=== PATIENT | female | born 1930 | race Caucasian/White ===

== ENCOUNTER 2018-08-22 11:19 | Inpatient (IN) | payer MEDICARE ==
[~2018-08-22] VITALS: Ht 149.9 cm; Wt 54.9 kg
[~2018-08-22 11:19] MED LIST: ACET325T53 PO; AMLO5TAB7 PO; ASCO500T8 PO; CALC-261 PO; DOCU-141 PO; ENOX30DI5 SQ; ESTR0.3T3 PO; FENO145T35 PO; HYDR-3974 PO; HYDR-4354 PO; LEVO750T21 PO; LORA0.5T PO; MAG30ORA PO; OMEP40CA37 PO; PHEN-705 PO; SENN-18 PO; SERT50TA12 PO; SIMV20TA6 PO; TAMS0.4C34 PO; TIMO5SOL9 EACHEYE; ZOLP5TAB2 PO
[2018-08-22 12:10] LABS: BASOPHILS # (AUTO) 0.1 /CMM (0.0-0.2); BASOPHILS % (AUTO) 0.6 % (0.0-2.0); EOSINOPHILS % (AUTO) 1.3 % (0.0-6.0); HEMATOCRIT 37 % (33-45); HEMOGLOBIN 12.3 g/dL (11.5-14.8); LYMPHOCYTES # (AUTO) 1.6 /CMM (0.8-4.8); LYMPHOCYTES % (AUTO) 11.9 % (20.0-44.0); MEAN CORPUSCULAR HGB CONC 33 g/dl (31.0-36.0); MEAN CORPUSCULAR VOLUME 96 fL (82-100); MONOCYTES # (AUTO) 1.1 /CMM (0.1-1.30); NEUTROPHILS # (AUTO) 10.5 /CMM (1.8-8.9); NEUTROPHILS % (AUTO) 78.2 % (43.0-81.0); PLATELET COUNT (AUTO) 241 /CMM (150-450); RED BLOOD CELL COUNT(AUTO) 3.85 MIL/uL (4.0-5.2); WHITE BLOOD COUNT (AUTO) 13.4 K/uL (4.3-11.0)
--- NOTE | 2018-08-22 12:11 | NUR ---
BIB FAMILY SENT BY DR VERDUGO C/O SACRUM AND R WRIST FX. ALERT AND ORIENTED X 4. ON ROOM AIR, BREATHING EVENLY AND UNLABROED. VITAL SIGNS WNL. AWAITING FOR MD FOR EVAL. WILL CONTINUE TO MONITOR ACCORDINGLY.
[2018-08-22 12:18] LABS: CALCIUM, SERUM 9.2 mg/dL (8.5-10.1); CARBON DIOXIDE 22 mmol/L (21-32); CHLORIDE 100 mmol/L (98-107); CREATININE 2.8 mg/dL (0.6-1.3); GLUCOSE 123 mg/dL (74-106); POTASSIUM 4.6 mmol/L (3.5-5.1); SODIUM SERUM 137 mmol/L (136-145); UREA NITROGEN, BLOOD 56 mg/dL (7-18)
--- NOTE | 2018-08-22 12:21 | NUR ---
CALLED [facility] FOR THIS PATIENT
--- NOTE | 2018-08-22 12:52 | NUR ---
CALLED NURSING SUP REQUESTED MED SURG BED FOR THIS PATIENT
[2018-08-22] MEDS ORDERED: IV NS 0.9% 1,000 ML BAG IV ONE (13:00)
[2018-08-22] MEDS ORDERED: IV NS 0.9% 500 ML BAG IV ONE (13:00)
[2018-08-22] MEDS ORDERED: ASPIRIN EC 81 MG TABLET.DR PO ONE (14:10)
[2018-08-22] MEDS ORDERED: CHOL100040 PO (14:13)
[2018-08-22] MEDS ORDERED: FENO200C PO (14:13)
[2018-08-22] MEDS: ASPIRIN EC 81 MG TABLET.DR PO SCH (14:15)
--- NOTE | 2018-08-22 14:20 | NUR ---
REPORT GIVEN TO TONO TAMAYO FOR PATRICIA. PT GOING TO ROOM 206 M.
--- NOTE | 2018-08-22 15:41 | NUR ---
TELE 120-1
--- NOTE | 2018-08-22 15:50 | NUR ---
REPORT GIVEN TO ANANT TAMAYO FOR PATRICIA. GOING TO ROOM 120-1 T.
[2018-08-22] MEDS ORDERED: ONDANSETRON HCL/PF 4 MG/2 ML VIAL IVP PRN (16:30)
[2018-08-22] MEDS ORDERED: HYDROCODONE/APAP 5/325MG 1 EACH TABLET PO PRN (16:30)
[2018-08-22] MEDS ORDERED: LORAZEPAM 0.5 MG TABLET PO PRN (16:30)
[2018-08-22] MEDS ORDERED: Z GUARD REMEDY 2 OZ OINT TP PRN (16:30)
--- NOTE | 2018-08-22 16:30 | NUR ---
PATIENT WHEELED TO RICARDO GOING TO ROOM 120-1 VIA ACLS PROTOCOL.
[2018-08-22 17:00] VITALS: BP 123/61
[2018-08-22] MEDS: TIMOLOL -XE 0.5% 5 ML BOTTLE EACHEYE SCH (17:00)
--- NOTE | 2018-08-22 17:00 | NUR ---
RN ADMITTING NOTES RECEIVED PT FROM ER VIA JAMES ACCOMPANIED BY RN, LIZETTE. NO C/O PAIN AT THIS TIME. SR ON TELEMONITOR. ORIENTED TO ROOM AND USE OF CALL LIGHT. ON 2L O2 VIA NC, TOLERATING WELL, NO SOB NOTED. SR ON TELEMONITOR. WITH INTACT AND IN PLACED FC DRAINING YELLOW COLOR URINE. WITH INTACT AND PATENT LAC G20 SL. PHYSICAL ASSESSMENT DONE AND VS TAKEN. SAFETY MEASURES IN PLACED. CALL LIGHT WITHIN EASY REACH. WILL CONT TO MONITOR
[2018-08-22] MEDS: IV NS 0.9% 1,000 ML IV PRN (17:16)
--- NOTE | 2018-08-22 17:28 | NUR ---
RN NOTES RECEIVED CALL FROM PHARMACY, SPOKE WITH RAYMON, PER PHARMACIST TIMOLOL EYEDROPS WILL BE AVAILABLE TOMORROW AM
--- NOTE | 2018-08-22 18:58 | NUR ---
RN NOTES PT IN STABLE CONDITION. NO ACUTE CHANGES NOTED THROUGHOUT SHIFT. SAFETY MEASURES OBSERVED AT ALL TIMES. WILL ENDORSED TO PM SHIFT RN FOR PATRICIA
[2018-08-22 20:00] VITALS: BP 103/54
[2018-08-22] MEDS ORDERED: LACTULOSE 10 G/15 ML UDC (PYXIS) PO PRN (20:00)
[2018-08-22] MEDS ORDERED: MAGNESIUM CITRATE 296 ML BOTTLE PO ONE (20:00)
--- NOTE | 2018-08-22 20:00 | NUR ---
TELE/RN NOTES: RECEIVED PT. IN BED W/ HOB ELEVATED. A/O X 4. RESPIRATIONS EVEN AND UNLABORED. DENIES ANY C/O CHEST PAIN OR SOB NOTED. ON TELE MONITOR W/ SR. W/ SON AND DAUGHTER IN LAW AT BEDSIDE. HAS LAC G 20 PATENT AND INTACT W/ IVF INTACT AND PATENT. W/ F/C PATENT AND INTACT DRAINING VIA GRAVITY. BEDS LOCKED AND IN LOW POSITION. CALL LIGHT W/ REACH. WILL CONTINUE TO MONITOR.
[2018-08-22] MEDS: SENNOSIDES 8.6 MG TABLET PO SCH (21:03)
[2018-08-22] MEDS: SIMVASTATIN 20 MG TABLET PO SCH (21:03)
[2018-08-22] MEDS: HYDROCODONE/APAP 5/325MG 1 EACH TABLET PO PRN (21:12)
[2018-08-23] VITALS: BP 95/56
[2018-08-23] MEDS: HYDROCODONE/APAP 5/325MG 1 EACH TABLET PO PRN ×3 (01:13→12:20)
[2018-08-23 04:00] VITALS: BP 100/60
--- NOTE | 2018-08-23 07:23 | NUR ---
TELE/RN NOTES: REPORT GIVEN TO NEXT SHIFT NURSE FOR PATRICIA.
--- NOTE | 2018-08-23 07:30 | NUR ---
TELE/RN OPENING NOTES: RECEIVED REPORT FROM PM NURSE .PT IN BED W/ HOB ELEVATED. A/O X 4. RESPIRATIONS EVEN AND UNLABORED. DENIES ANY C/O CHEST PAIN OR SOB NOTED. ON TELE MONITOR W/ SR HR 67. HAS LAC G 20 PATENT AND INTACT W/ IVF INTACT AND PATENT. W/ F/C PATENT AND INTACT DRAINING VIA GRAVITY. BEDS LOCKED AND IN LOW POSITION. CALL LIGHT W/ REACH. SRX3.WILL CONTINUE TO MONITOR.
[2018-08-23 07:37] LABS: BASOPHILS % (AUTO) 0.4 % (0.0-2.0); HEMATOCRIT 31 % (33-45); HEMOGLOBIN 10.7 g/dL (11.5-14.8); LYMPHOCYTES # (AUTO) 2.2 /CMM (0.8-4.8); LYMPHOCYTES % (AUTO) 24.5 % (20.0-44.0); MEAN CORPUSCULAR HGB CONC 34 g/dl (31.0-36.0); MEAN CORPUSCULAR VOLUME 97 fL (82-100); MONOCYTES # (AUTO) 1.1 /CMM (0.1-1.30); MONOCYTES % (AUTO) 11.7 % (2.0-12.0); NEUTROPHILS # (AUTO) 5.5 /CMM (1.8-8.9); NEUTROPHILS % (AUTO) 60.4 % (43.0-81.0); PLATELET COUNT (AUTO) 206 /CMM (150-450); RED BLOOD CELL COUNT(AUTO) 3.24 MIL/uL (4.0-5.2); WHITE BLOOD COUNT (AUTO) 9.1 K/uL (4.3-11.0)
[2018-08-23 07:47] LABS: CHOLESTEROL 129 mg/dL (<200); HDL CHOLESTEROL 17 mg/dL (40-60); LDL 76 mg/dL (0-99); THYROID STIMULATING HORMONE 1.291 uIU/mL (0.358-3.74); TRIGLYCERIDES 189 mg/dL (30-150)
[2018-08-23 08:00] VITALS: BP 100/65
[2018-08-23 08:02] LABS: ALANINE AMINOTRANSFERASE 41 U/L (12-78); ALBUMIN 2.8 g/dL (3.4-5.0); ALKALINE PHOSPHATASE 52 U/L (46-116); ASPARTATE AMINOTRANSFERASE 50 U/L (15-37); BILIRUBIN,TOTAL 0.3 mg/dL (0.2-1.0); CALCIUM, SERUM 8.4 mg/dL (8.5-10.1); CARBON DIOXIDE 25 mmol/L (21-32); CHLORIDE 108 mmol/L (98-107); CREATININE 1.7 mg/dL (0.6-1.3); GLUCOSE 105 mg/dL (74-106); MAGNESIUM 2.5 mg/dL (1.8-2.4); PHOSPHORUS 3.6 mg/dL (2.5-4.9); POTASSIUM 4.7 mmol/L (3.5-5.1); SODIUM SERUM 143 mmol/L (136-145); TOTAL PROTEIN, SERUM 6.3 g/dL (6.4-8.2); UREA NITROGEN, BLOOD 48 mg/dL (7-18)
[2018-08-23 08:09] LABS: IRON, SERUM 37 ug/dl (50-175); TOTAL IRON BINDING CAPACITY 270 ug/dl (250-450)
[2018-08-23] MEDS: ASPIRIN EC 81 MG TABLET.DR PO SCH (08:13)
[2018-08-23] MEDS: SERTRALINE HCL 50 MG TABLET PO SCH (08:13)
[2018-08-23] MEDS: IV NS 0.9% 1,000 ML IV PRN (08:14)
[2018-08-23] MEDS: TIMOLOL -XE 0.5% 5 ML BOTTLE EACHEYE SCH ×2 (08:45→16:52)
[2018-08-23] MEDS ORDERED: IV NS 0.9% 1,000 ML IV PRN (09:47)
--- NOTE | 2018-08-23 11:30 | NUR ---
CHILD CARE NOTE SEEN Y MADE AWARE ABOUT PATIENT CONDITION NAD LABS AND NOTIFIED PATIENT C/O PAIN L SHOULDER,BACK AND NECK.NOT RADIATING.NO CHEST PAIN.GOT ORDER FOR EKG.STABLE V/SWILL CONTINUE TO MONITOR.
[2018-08-23 12:00] VITALS: BP 141/76
--- NOTE | 2018-08-23 12:47 | NUR ---
SHAPER MACHINE HAND NOTE SEEN BY .GOT NEW ORDERS.
[2018-08-23] MEDS ORDERED: TRAMADOL HCL 50 MG TABLET PO ONE (15:00)
[2018-08-23 16:00] VITALS: BP_SYST 118; BP_SYST 121; BP_DIAS 63; BP_DIAS 65
--- NOTE | 2018-08-23 19:45 | NUR ---
TELE/RN CLOSING NOTES: .PT IN BED W/ HOB ELEVATED. A/O X 4. RESPIRATIONS EVEN AND UNLABORED. DENIES ANY C/O CHEST PAIN OR SOB NOTED. ON TELE MONITOR W/ SR HR 64. HAS LAC G 20 PATENT AND INTACT . W/ F/C PATENT AND INTACT DRAINING VIA GRAVITY. BEDS LOCKED AND IN LOW POSITION. CALL LIGHT W/ REACH. SRX3.ENDORSED TO PM NURSE FOR PATRICIA.EKG RESULT RELAYED TO DR.KOSHKARYAN ESCALONA.WAITING FOR ECHO.PM NURSE MADE AWARE.
[2018-08-23 20:00] VITALS: BP 118/58
--- NOTE | 2018-08-23 20:00 | NUR ---
CONCRETE BLOCK LAYER NOTE RECEIVED PT IN BED AWAKE. AO X 3, NO SOB, NO DISTRESS OR DISCOMFORT NOTED. DENIES PAIN AT THIS TIME. SL LAC # 20 G INTACT AND PATENT. REMAIN ON O2 2L VIA N/C. ON TELE SR HR 71. SIDE RAILS UP X 2 AND CALL LIGHT WITHIN REACH. VSS. CONTINUE TO MONITOR HER.
[2018-08-23] MEDS: SENNOSIDES 8.6 MG TABLET PO SCH (21:24)
[2018-08-23] MEDS: SIMVASTATIN 20 MG TABLET PO SCH (21:24)
[2018-08-24] VITALS: BP 107/61
[2018-08-24 04:00] VITALS: BP 116/65
[2018-08-24] MEDS: TRAMADOL HCL 50 MG TABLET PO PRN ×2 (06:01→18:10)
--- NOTE | 2018-08-24 06:39 | NUR ---
MS RN NOTE PT IN BED AWAKE. NO DISTRESS OR DISCOMFORT NOTED. PAIN IS SUBSIDING 5/10. ON TELE SR HR 70. SIDE RAILS UP X 3 AND CALL LIGHT WITHIN REACH. VSS. REPOSITION HER GENTLY Q2H. KEPT HER DRY AND CLEAN. F/C INTACT AND PATENT DRAINING YELLOWISH COLOR URINE. WILL ENDORSE TO DAY SHIFT NURSE FOR CONTINUE TO CARE.
--- NOTE | 2018-08-24 07:10 | NUR ---
ENTRANCE GUARD NOTE RECEIVED PT ON BED AWAKE A/O X 3, ON 2L O2 N/C , NO SOB, ON TELE SR HR IN 70' , L AC IV SITE G 20 CLEAN ,DRY AND INTACT, SIDE RAILS UP X 3 , CALL LIGHT WITHIN EASY REACH. CONTINUE TO MONITOR .
[2018-08-24 08:00] VITALS: BP 105/67
[2018-08-24] MEDS: TIMOLOL -XE 0.5% 5 ML BOTTLE EACHEYE SCH ×2 (08:06→16:47)
[2018-08-24] MEDS: SERTRALINE HCL 50 MG TABLET PO SCH (08:06)
[2018-08-24] MEDS: ASPIRIN EC 81 MG TABLET.DR PO SCH (08:06)
[2018-08-24 08:18] LABS: CALCIUM, SERUM 8.5 mg/dL (8.5-10.1); CARBON DIOXIDE 27 mmol/L (21-32); CHLORIDE 102 mmol/L (98-107); GLUCOSE 128 mg/dL (74-106); MAGNESIUM 2.2 mg/dL (1.8-2.4); PHOSPHORUS 2.7 mg/dL (2.5-4.9); SODIUM SERUM 137 mmol/L (136-145); UREA NITROGEN, BLOOD 24 mg/dL (7-18)
[2018-08-24 08:28] LABS: BASOPHILS % (AUTO) 0.3 % (0.0-2.0); EOSINOPHILS % (AUTO) 0.9 % (0.0-6.0); HEMATOCRIT 32 % (33-45); HEMOGLOBIN 10.6 g/dL (11.5-14.8); LYMPHOCYTES # (AUTO) 1.5 /CMM (0.8-4.8); LYMPHOCYTES % (AUTO) 12.5 % (20.0-44.0); MEAN CORPUSCULAR HGB CONC 34 g/dl (31.0-36.0); MEAN CORPUSCULAR VOLUME 96 fL (82-100); MONOCYTES # (AUTO) 1.3 /CMM (0.1-1.30); MONOCYTES % (AUTO) 10.7 % (2.0-12.0); NEUTROPHILS # (AUTO) 9.2 /CMM (1.8-8.9); NEUTROPHILS % (AUTO) 75.6 % (43.0-81.0); PLATELET COUNT (AUTO) 218 /CMM (150-450); RED BLOOD CELL COUNT(AUTO) 3.31 MIL/uL (4.0-5.2); WHITE BLOOD COUNT (AUTO) 12.2 K/uL (4.3-11.0)
[2018-08-24] MEDS: ACETAMINOPHEN 325 MG TABLET PO PRN ×2 (10:29→21:22)
--- NOTE | 2018-08-24 10:40 | NUR ---
RN NOTES PT C/O MID CHEST PAIN AND STATED HAS COSTOCHONDRITISES , VSS STABLE ,TYLENOL 650 PO GIVEN , DR UREÑA NOTIFED, CONTINUE TO MONITOR .
[2018-08-24 12:00] VITALS: BP 95/55
--- NOTE | 2018-08-24 14:17 | NUR ---
SPOKE TO NURSE AT 1410, SHE WILL CALL BACK WHEN PT HAS 18G IV, AND SIGNED CONSENT
[2018-08-24] MEDS ORDERED: IV NS 0.9% 250 ML IV ONE (15:10)
[2018-08-24] MEDS ORDERED: IOHEXOL-350 100 ML VIAL IV ONE (15:10)
[2018-08-24] MEDS ORDERED: CT SWABBABLE VALVE TRANS SET 1 EA INFUS.SET MC ONE (15:10)
[2018-08-24 16:00] VITALS: BP 110/64
--- NOTE | 2018-08-24 18:00 | NUR ---
RN NOTES PT STABLE , RESTING AT THIS TIME, NO SIGNIFICANT CHANGES NOTED ON THIS SHIFT , WILL ENDORSE TO BUGGY DRIVER NURSE FOR CONTINUITY OF CARE
[2018-08-24 20:00] VITALS: BP 110/57
[2018-08-24] MEDS: SENNOSIDES 8.6 MG TABLET PO SCH (21:22)
[2018-08-24] MEDS: SIMVASTATIN 20 MG TABLET PO SCH (21:22)
[2018-08-25] VITALS: BP 112/51
[2018-08-25 04:00] VITALS: BP 115/66
[2018-08-25] MEDS: TRAMADOL HCL 50 MG TABLET PO PRN ×2 (05:43→15:29)
[2018-08-25 06:54] LABS: BASOPHILS % (AUTO) 0.4 % (0.0-2.0); EOSINOPHILS % (AUTO) 3.5 % (0.0-6.0); HEMATOCRIT 33 % (33-45); HEMOGLOBIN 11.1 g/dL (11.5-14.8); LYMPHOCYTES # (AUTO) 2.5 /CMM (0.8-4.8); LYMPHOCYTES % (AUTO) 25.6 % (20.0-44.0); MEAN CORPUSCULAR HGB CONC 33 g/dl (31.0-36.0); MEAN CORPUSCULAR VOLUME 97 fL (82-100); MONOCYTES % (AUTO) 10.5 % (2.0-12.0); NEUTROPHILS # (AUTO) 5.9 /CMM (1.8-8.9); PLATELET COUNT (AUTO) 265 /CMM (150-450); RED BLOOD CELL COUNT(AUTO) 3.44 MIL/uL (4.0-5.2); WHITE BLOOD COUNT (AUTO) 9.8 K/uL (4.3-11.0)
[2018-08-25 07:10] LABS: ALANINE AMINOTRANSFERASE 27 U/L (12-78); ALBUMIN 2.6 g/dL (3.4-5.0); ALKALINE PHOSPHATASE 58 U/L (46-116); ASPARTATE AMINOTRANSFERASE 22 U/L (15-37); BILIRUBIN,TOTAL 0.4 mg/dL (0.2-1.0); CALCIUM, SERUM 9.2 mg/dL (8.5-10.1); CARBON DIOXIDE 30 mmol/L (21-32); CHLORIDE 102 mmol/L (98-107); GLUCOSE 98 mg/dL (74-106); MAGNESIUM 2.4 mg/dL (1.8-2.4); PHOSPHORUS 3.3 mg/dL (2.5-4.9); POTASSIUM 4.3 mmol/L (3.5-5.1); SODIUM SERUM 137 mmol/L (136-145); TOTAL PROTEIN, SERUM 6.7 g/dL (6.4-8.2); UREA NITROGEN, BLOOD 25 mg/dL (7-18)
[2018-08-25 08:00] VITALS: BP 130/64
[2018-08-25] MEDS: SERTRALINE HCL 50 MG TABLET PO SCH (09:49)
[2018-08-25] MEDS: ASPIRIN EC 81 MG TABLET.DR PO SCH (09:49)
[2018-08-25] MEDS: TIMOLOL -XE 0.5% 5 ML BOTTLE EACHEYE SCH ×2 (09:49→16:54)
[2018-08-25 16:00] VITALS: BP 134/77
[2018-08-25] MEDS ORDERED: SENN-168 PO (16:04)
[2018-08-25] MEDS: ACETAMINOPHEN 325 MG TABLET PO PRN (17:23)
--- NOTE | 2018-08-25 17:35 | NUR ---
BLAIRE TAMAYO NOTE PATIENT PREPARED FOR DISCHARGE, EXITCARE COMPLETE, DISCHARGE INSTRUCTIONS COMPLETED AND PRINTED, EXPLAINED TO PATIENT AND SIGNED BY PATIENT. PATIENT STATES UNDERSTANDING. REPORT CALLED TO ARU AT [facility] TO [facility]. CALLED PATIENT'S SON MILANA TO INFORM HIM OF PATIENT'S DISCHARGE AND HE SAID HE WOULD MEET HER THERE AT ARU AT [facility] LATER THIS EVENING. REMOVED IV SITES, NO SIGNS OF INFECTION OR BLEEDING NOTED. CHIU CATHETER LEFT IN. REPORT GIVEN TO PARAMEDICS, VITAL SIGNS STABLE, NO RESPIRATORY DISTRESS NOTED. PATIENT SAID SHE RECEIVED FLU VACCINE LAST MONTH AND SAID SHE IS NOT SURE IF SHE SHOULD RECEIVE THE PNEUMONIA VACCINE. STATES SHE PREFERS TO CHECK WITH HER PCP FIRST AND RECEIVE IT THERE LATER. PATIENT LEFT THE FACILITY IN STABLE CONDITION WITH BELONGINGS AT 17:30 ON A GURNEY ACCOMPANIED BY 2 DYSLEXIA TEACHER.
== END 2018-08-25 17:38 | DRG 551 ==
LOC: ER 11:25 → MEDSG2 13:29 → MEDSG1 15:42 → TELE1 17:24 → MEDSG1 08-25 11:02
PROVIDERS: ADMIT Nurse Practitioner Acute Care; ATTEND Nurse Practitioner Acute Care
DX: S32.10XA Unspecified fracture of sacrum, initial encounter for closed fracture (principal); N17.0 Acute kidney failure with tubular necrosis; I21.A1 Myocardial infarction type 2; W01.0XXA Fall on same level from slipping, tripping and stumbling without subsequent striking against object, initial encounter; Y93.9 Activity, unspecified; Y92.009 Unspecified place in unspecified non-institutional (private) residence as the place of occurrence of the external cause; E86.0 Dehydration; E78.5 Hyperlipidemia, unspecified; F41.9 Anxiety disorder, unspecified; K59.00 Constipation, unspecified; Z88.2 Allergy status to sulfonamides; E86.1 Hypovolemia; H40.9 Unspecified glaucoma; I11.0 Hypertensive heart disease with heart failure; I50.9 Heart failure, unspecified; S62.101A Fracture of unspecified carpal bone, right wrist, initial encounter for closed fracture
CPT/HCPCS: 36415; 71045-TC; 80048-TC; 80053-TC; 80061-TC; 83540-TC; 83735-TC; 84100-TC; 84443-TC; 84484-TC; 85025-TC; 85730-TC; 87081-TC; 93307-TC; 97110-TC; 97116-TC; 97530-TC; A4606; G0378; J7030; J7040; J7050; Q9967; Z7610